=== PATIENT | female | born 1985 | race Caucasian/White ===

== ENCOUNTER 2024-06-30 09:39 | Emergency (ER) | payer OTHER ==
[2024-06-30] MEDS ORDERED: Sulfamethoxazole/Trimethoprim 800-160 MG Tab PO ONE (09:40)
[2024-06-30] MEDS ORDERED: Ondansetron 4 MG Tab.DIS PO ONE (09:40)
[2024-06-30] MEDS ORDERED: Sodium Chloride 0.9% 10 ML Syringe FLUSH PRN (10:07)
[2024-06-30] MEDS: Prochlorperazine 10 MG/2 ML SDV IVPUSH ONE (10:22)
[2024-06-30] MEDS: Sodium Chloride 0.9% 1,000 ML IV SCH (10:24)
[2024-06-30] MEDS: Meclizine 25 MG Tab PO ONE (10:24)
[2024-06-30 10:32] LABS: HEMATOCRIT 43.3 % (34.2-48.2); HEMOGLOBIN 15.4 g/dL (11.4-15.5); MEAN CORPUSCULAR HEMOGLOBIN 31.2 pg (23.9-33.9); MEAN CORPUSCULAR HGB CONC 35.5 g/dL (31.9-34.8); MEAN CORPUSCULAR VOLUME 87.9 fL (76.7-100.5); MEAN PLATELET VOLUME 9.7 fL (7.1-12.4); PLATELET COUNT,PLT 243 x10(3)uL (151-488); RED BLOOD CELL COUNT 4.92 x10(6)uL (3.60-5.20); RED CELL DISTRIBUTION WIDTH 12.8 % (12.3-16.5); WHITE BLOOD CELL COUNT,WBC 14.9 x10-3/uL (3.0-10.3)
[2024-06-30 10:34] LABS: BLOOD UREA NITROGEN,BUN 13 mg/dL (7-18); CALCIUM 9.1 mg/dL (8.6-10.2); CARBON DIOXIDE,CO2 26 mmol/L (21-32); CHLORIDE,CL 105 mmol/L (100-110); ESTIMATED GFR 74 mL/min (>60); GLUCOSE RANDOM 110 mg/dL (80-116); POTASSIUM,K 3.8 mmol/L (3.5-5.3); SODIUM,NA 141 mmol/L (135-145)
[2024-06-30 10:40] LABS: A/G RATIO 1.2; ALANINE AMINOTRANSFERASE,ALT 44 U/L (12-36); ALBUMIN 3.9 g/dL (3.5-5.2); ALKALINE PHOSPHATASE 93 IU/L (56-112); ASPARTATE AMNIOTRANSFERASE,AST 20 IU/L (5-25); BILIRUBIN TOTAL 0.7 mg/dL (0.1-1.3); PROTEIN TOTAL,TP 7.2 g/dL (6.0-8.0)
[2024-06-30 10:46] LABS: LYMPHOCYTES PERCENT MAN 13 % (13-37); MONOCYTES PERCENT MAN 2 % (4-12); SEG NEUTROPHILS PERCENT MAN 85 % (46-82)
[2024-06-30 11:30] VITALS: PULSE 67
[2024-06-30 11:39] LABS: LACTIC ACID 1.6 mmol/L (0.4-2.0)
[2024-06-30] MEDS: Ondansetron 4 MG/2 ML SDV IVPUSH ONE (12:05)
[2024-06-30 12:18] LABS: BILIRUBIN,URINE NEGATIVE (NEGATIVE); GLUCOSE,URINE NORMAL (NORMAL); KETONES,URINE 50 mg/dL (NEGATIVE); LEUKOCYTE ESTERASE,URINE LARGE (NEGATIVE); NITRITE,URINE NEGATIVE (NEGATIVE); OCCULT BLOOD,URINE MODERATE (NEGATIVE); PROTEIN,URINE NEGATIVE (NEGATIVE); UROBILINOGEN,URINE NORMAL (NEGATIVE)
[2024-06-30 12:19] LABS: APPEARANCE,URINE SLIGHTLY CLOUDY (CLEAR); COLOR,URINE YELLOW (YELLOW)
[2024-06-30 12:25] LABS: RBC,URINE 0-5 (0-5)
[2024-06-30 12:26] LABS: BACTERIA,URINE MANY (NS); SQUAMOUS EPITHELIAL CELLS,UR FEW (NS,R,O)
[2024-06-30 13:36] VITALS: BP 111/67
== END 2024-06-30 13:28 | disposition home or self-care (01) ==
LOC: FB.ED 09:39
DX: H81.10 Benign paroxysmal vertigo, unspecified ear (principal); E23.6 Other disorders of pituitary gland; N39.0 Urinary tract infection, site not specified; Z88.8 Allergy status to other drugs, medicaments and biological substances; Z79.899 Other long term (current) drug therapy
CPT/HCPCS: 70450; 71045; 80053; 81001; 83605; 84484; 85025; 87086; 93005; 96361; 96374; 96375; 99285; A9270; J0780; J2405; J7030; Q0162